=== PATIENT | female | born 1995 | race Caucasian/White ===

== ENCOUNTER 2022-08-02 13:07 | Emergency (ER) | payer OTHER ==
[~2022-08-02] VITALS: Ht 172.7 cm; Wt 54.4 kg
[2022-08-02 13:12] VITALS: BP_SYST 167
--- NOTE | 2022-08-02 13:15 | NUR ---
Placed in room 08 . Placed on bridal sales consultant, blood pressure machine and pulse oximeter. To gown for exam. Side rails up. Report given to BIPIN FARLEY.
[2022-08-02 13:35] LABS: BASOPHILS % (AUTO) 0.2 % (0.0-2.0); EOSINOPHILS % (AUTO) 0.1 % (0.0-4.0); HEMATOCRIT 38.5 % (36-48); LYMPHOCYTES # (AUTO) 2.1 K/uL (1.0-5.5); LYMPHOCYTES % (AUTO) 11.1 % (20.5-51.5); MEAN CORPUSCULAR HEMOGLOBIN 30 pg (27-31); MEAN CORPUSCULAR HGB CONC 31 % (32-36); MEAN CORPUSCULAR VOLUME 97 fL (79.0-98.0); MONOCYTES # (AUTO) 0.9 K/uL (0.0-1.0); MONOCYTES % (AUTO) 4.7 % (1.7-9.3); NEUTROPHILS % (AUTO) 83.9 % (40.0-70.0); PLATELET COUNT (AUTO) 242 K/uL (130-430); RED BLOOD CELL COUNT(AUTO) 3.98 MIL/uL (4.2-6.2); RED CELL DISTRIBUTION WIDTH 16.7 % (9.0-15.0)
[2022-08-02] MEDS ORDERED: OXYC-133 PO (13:41)
[2022-08-02] MEDS ORDERED: ALPR2TAB2 PO (13:41)
[2022-08-02] MEDS ORDERED: VENL75CA PO (13:41)
[2022-08-02] MEDS ORDERED: MYCO500T5 PO (13:41)
[2022-08-02] MEDS ORDERED: PRED5TAB PO (13:41)
[2022-08-02] MEDS ORDERED: DIVA500T2 PO (13:41)
[2022-08-02] MEDS ORDERED: SER25 PO (13:41)
[2022-08-02] MEDS ORDERED: SUCR500T PO (13:41)
[2022-08-02] MEDS ORDERED: SCOP1PAT21 TD (13:41)
[2022-08-02] MEDS ORDERED: TACR1CAP2 PO ×2 (13:41)
[2022-08-02] MEDS ORDERED: LEVE1000 PO (13:41)
--- NOTE | 2022-08-02 13:41 | NUR ---
Medication reconciliation completed with information provided by PATIENT. Any prior medication reconciliation on file was reviewed and corrected.
[2022-08-02 13:44] LABS: CALCIUM 9.3 mg/dL (8.4-11.0)
[2022-08-02] MEDS ORDERED: levETIRAcetam 1,000 MG IV BAG 100 ML IV ONE (13:45)
[2022-08-02] MEDS ORDERED: NACL 0.9% 500 ML IV ONE (13:45)
[2022-08-02 13:52] LABS: CREATININE 12.9 mg/dL (0.55-1.30)
[2022-08-02] MEDS ORDERED: MORPHINE 4 MG INJ. 4 MG/ML VIAL IVP ONE ×2 (14:30→15:30)
[2022-08-02] MEDS ORDERED: CIPR500T5 PO (14:48)
[2022-08-02] MEDS ORDERED: ONDA8TAB60 PO (14:48)
[2022-08-02] MEDS ORDERED: ONDANSETRON HCL 4 MG/2 ML VIAL ONE (15:19)
[2022-08-02] MEDS ORDERED: ONDANSETRON HCL 4 MG/2 ML VIAL IVP ONE (15:30)
--- NOTE | 2022-08-02 15:32 | NUR ---
NO SEIZURE ACTIVITY NOTED WHILE BEING HERE IN ER. PT C/O NAUSEA AND ALL OVER BODY, DR LENTZ INFORMED.
[2022-08-02 16:07] VITALS: BP_SYST 148
--- NOTE | 2022-08-02 16:12 | NUR ---
Patient given written and verbal discharge instructions and verbalizes understanding. ER MD discussed with patient the results and treatment provided. Patient in stable condition. ID arm band removed. IV catheter removed intact and dressing applied, no active bleeding. Rx of CIPRO, ZOFRAN given. Patient educated on pain management and to follow up with PMD. Pain Scale . Opportunity for questions provided and answered. Medication side effect fact sheet provided.
== END 2022-08-02 16:07 | disposition home or self-care (01) ==
LOC: SED 13:07
DX: R56.9 Unspecified convulsions (principal); R19.7 Diarrhea, unspecified; R11.2 Nausea with vomiting, unspecified; Z91.018 Allergy to other foods; Z88.6 Allergy status to analgesic agent; Z88.8 Allergy status to other drugs, medicaments and biological substances; Z79.899 Other long term (current) drug therapy
CPT/HCPCS: 99284; 96365; 96375; 96361; 80048; 85025; 36415; 96376; J1953; J2405; J2270; J7030